=== PATIENT | female | born 1985 | race Caucasian/White ===

== ENCOUNTER 2020-05-20 13:56 | Emergency (ER) | payer SELFPAY ==
[~2020-05-20] VITALS: Ht 170 cm; Wt 62.0 kg
--- NOTE | 2020-05-20 14:08 | ED General ---
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 She was tested positive for coronavirus on 05/07/2020. She returned to work yesterday, today has been having some head rushes as well as general malaise and nausea. She denies feeling short of breath. She does have a history of asthma but is otherwise healthy. Timing/Duration: 1-2 Days Severity: Moderate, Severe Associated Systoms: Weakness Allergies and Home Medications Allergies Coded Allergies: Penicillins (Verified Allergy, Unknown, 05/20/20) Patient Home Medication List Home Medication List Reviewed: Yes Review of Systems Review of Systems Constitutional: see HPI, malaise, weakness EENTM: see HPI Respiratory: see HPI Cardiovascular: no symptoms reported Genitourinary: no symptoms reported Musculoskeletal: see HPI, back pain Skin: no symptoms reported Psychiatric/Neurological: No Symptoms Reported Hematologic/Lymphatic: No Symptoms Reported Immunological/Allergic: no symptoms reported Physical Exam Vital Signs Vital Signs - First Documented 05/20/20 14:00 Temp 36.5 Pulse 112 Resp 22 B/P (MAP) 134/80 (98) Pulse Ox 100 O2 Delivery Room Air Capillary Refill : Height, Weight, BMI Height: '" Weight: lbs. oz. kg; BMI Method: General Appearance: WD/WN, Other (Ill-appearing. Tachypneic with a respiratory rate in the 30s but oxygen saturation of 100% on room air. Heart rate was in the 130s on arrival, reduced to about 110 after settling down in bed. Lungs are clear with good air movement no wheezing.) Eyes: Bilateral Eye Normal Inspection, Bilateral Eye PERRL, Bilateral Eye EOMI Neck: Full Range of Motion, Normal Inspection Respiratory: Lungs Clear, Normal Breath Sounds, No Accessory Muscle Use, No Respiratory Distress Cardiovascular: Normal Peripheral Pulses, Tachycardia Gastrointestinal: Non Tender, Soft Extremity: Normal Capillary Refill, Normal Inspection Neurologic/Psychiatric: Alert, Oriented x3 Skin: Normal Color, Warm/Dry Progress/Results/Core Measures Suspected Sepsis SIRS Temperature: Pulse: Respiratory Rate: Laboratory Tests 05/20/20 14:01: White Blood Count 10.5 Blood Pressure / Mean: Laboratory Tests 05/20/20 14:01: Creatinine 0.84, Platelet Count 290, Total Bilirubin 0.3 Results/Orders Lab Results Laboratory Tests Test 05/20/20 14:01 Range/Units White Blood Count 10.5 4.3-11.0 10^3/uL Red Blood Count 4.86 3.80-5.11 10^6/uL Hemoglobin 14.4 11.5-16.0 g/dL Hematocrit 43 35-52 % Mean Corpuscular Volume 88 80-99 fL Mean Corpuscular Hemoglobin 30 25-34 pg Mean Corpuscular Hemoglobin Concent 34 32-36 g/dL Red Cell Distribution Width 11.8 10.0-14.5 % Platelet Count 290 130-400 10^3/uL Mean Platelet Volume 10.7 9.0-12.2 fL Immature Granulocyte % (Auto) 1 % Neutrophils (%) (Auto) 66 42-75 % Lymphocytes (%) (Auto) 26 12-44 % Monocytes (%) (Auto) 5 0-12 % Eosinophils (%) (Auto) 1 0-10 % Basophils (%) (Auto) 0 0-10 % Neutrophils # (Auto) 6.9 1.8-7.8 10^3/uL Lymphocytes # (Auto) 2.8 1.0-4.0 10^3/uL Monocytes # (Auto) 0.5 0.0-1.0 10^3/uL Eosinophils # (Auto) 0.1 0.0-0.3 10^3/uL Basophils # (Auto) 0.0 0.0-0.1 10^3/uL Immature Granulocyte # (Auto) 0.1 0.0-0.1 10^3/uL D-Dimer 0.88 H 0.00-0.49 UG/ML Sodium Level 141 135-145 MMOL/L Potassium Level 3.5 L 3.6-5.0 MMOL/L Chloride Level 106 98-107 MMOL/L Carbon Dioxide Level 21 21-32 MMOL/L Anion Gap 14 5-14 MMOL/L Blood Urea Nitrogen 13 7-18 MG/DL Creatinine 0.84 0.60-1.30 MG/DL Estimat Glomerular Filtration Rate > 60 BUN/Creatinine Ratio 15 Glucose Level 104 70-105 MG/DL Calcium Level 9.4 8.5-10.1 MG/DL Corrected Calcium 8.5-10.1 MG/DL Total Bilirubin 0.3 0.1-1.0 MG/DL Aspartate Amino Transf (AST/SGOT) 24 5-34 U/L Alanine Aminotransferase (ALT/SGPT) 26 0-55 U/L Alkaline Phosphatase 46 40-136 U/L Troponin I < 0.028 <0.028 NG/ML C-Reactive Protein High Sensitivity 0.05 0.00-0.50 MG/DL Total Protein 8.0 6.4-8.2 GM/DL Albumin 4.6 H 3.2-4.5 GM/DL Procalcitonin 0.01 <0.10 NG/ML My Orders Orders - JENAE FINN APRN Cbc With Automated Diff (05/20/20 14:05) Comprehensive Metabolic Panel (05/20/20 14:05) Hs C Reactive Protein (05/20/20 14:05) Procalcitonin (Pct) (05/20/20 14:05) Fibrin Degradation Products (05/20/20 14:05) Chest 1 View, Ap/Pa Only (05/20/20 14:05) Ed Iv/Invasive Line Start (05/20/20 14:05) Promethazine Injection (Phenergan Injec (05/20/20 14:15) Ketorolac Injection (Toradol Injection) (05/20/20 14:15) Troponin I (05/20/20 14:12) Ekg Tracing (05/20/20 14:12) Ct Angio Chest W (05/20/20 14:46) Iohexol Injection (Omnipaque 350 Mg/Ml 1 (05/20/20 15:00) Received Contrast (Hold Metformin- Contr (05/20/20 15:00) Ns (Ivpb) (Sodium Chloride 0.9% Ivpb Bag (05/20/20 15:00) Ns Iv 1000 Ml (Sodium Chloride 0.9%) (05/20/20 15:00) Medications Given in ED Current Medications Medications Dose Ordered Sig/Blayne Route Start Time Stop Time Status Last Admin Dose Admin Iohexol 75 ml ONCE ONCE IV 05/20/20 15:00 05/20/20 15:01 DC 05/20/20 15:05 60 ML Ketorolac Tromethamine 15 mg ONCE ONCE IVP 05/20/20 14:15 05/20/20 14:16 DC 05/20/20 14:14 15 MG Promethazine HCl 25 mg ONCE ONCE IVP 05/20/20 14:15 05/20/20 14:16 DC 05/20/20 14:15 25 MG Sodium Chloride 100 ml ONCE ONCE IV 05/20/20 15:00 05/20/20 15:01 DC 05/20/20 15:05 80 ML Vital Signs/I&O 05/20/20 14:00 Temp 36.5 Pulse 112 Resp 22 B/P (MAP) 134/80 (98) Pulse Ox 100 O2 Delivery Room Air Capillary Refill : Diagnostic Imaging Diagonstic Imaging: CT Comments NAME: YARA [facility] REC#: [id number] PT STATUS: REG ER : 1985 PHYSICIAN: JENAE FINN APRN ADMIT DATE: 05/20/20/ER Draft Date of Exam:05/20/20 CT ANGIO CHEST W PROCEDURE: CT angiography of the chest with contrast. TECHNIQUE: Multiple contiguous axial images were obtained through the chest after uneventful bolus administration of intravenous contrast. 3D reconstructed CTA MIP acquisitions were also performed. Auto Exposure Controls were utilized during the CT exam to meet ALARA standards for radiation dose reduction. INDICATION: Covid patient with difficulty breathing. FINDINGS: The pulmonary arterial branches are well opacified and widely patent. No filling defect or PE. There is no pleural or pericardial effusion. There is some very mild groundglass opacity in the right lower lobe medially as well as minimally involving the subpleural left lower lobe at the posterolateral sulcus. The lungs are otherwise clear. No air bronchograms. No blebs, bullous disease, or air cysts. There is some very minimal biapical pleural-parenchymal scarring. There is no pneumothorax. The visualized upper abdomen is unremarkable. IMPRESSION: 1. There are very mild zones of bibasilar peripheral groundglass infiltrates which are nonspecific but compatible with viral infectious etiology. 2. Negative for PE or acute aortic disease. No chest effusion or lobar consolidation. 3. The report was faxed to Infection Control by [email or web address]@3:33 PM. Dictated on workstation # [id number] Dict: 05/20/20 1517 Trans: 05/20/20 1534 [id number] Interpreted by: SAMANTHA STOCKTON Electronically signed by: Departure Impression Primary Impression: COVID-19 Additional Impressions: Sinus tachycardia Physical deconditioning Disposition: 01 HOME, SELF-CARE Condition: Improved Departure-Patient Inst. Decision time for Depature: 15:22 Referrals: NO,LOCAL PHYSICIAN (PCP/Family) Primary Care Physician Patient Instructions: Coronavirus Disease 2019 (COVID-19) Overview Add. Discharge Instructions: 1. Return to ER for any concerns 2. Follow-up with your doctor next week 3. JENAE FINN APRN May 20, 2020 14:08
[2020-05-20 14:11] LABS: BASOPHILS % (AUTO) 0 % (0-10); EOSINOPHILS # (AUTO) 0.1 10^3/uL (0.0-0.3); EOSINOPHILS % (AUTO) 1 % (0-10); HEMATOCRIT 43 % (35-52); HEMOGLOBIN 14.4 g/dL (11.5-16.0); LYMPHOCYTES # (AUTO) 2.8 10^3/uL (1.0-4.0); LYMPHOCYTES % (AUTO) 26 % (12-44); MEAN CORPUSCULAR HEMOGLOBIN 30 pg (25-34); MEAN CORPUSCULAR HGB CONC 34 g/dL (32-36); MEAN CORPUSCULAR VOLUME 88 fL (80-99); MEAN PLATELET VOLUME 10.7 fL (9.0-12.2); MONOCYTES # (AUTO) 0.5 10^3/uL (0.0-1.0); MONOCYTES % (AUTO) 5 % (0-12); NEUTROPHILS # (AUTO) 6.9 10^3/uL (1.8-7.8); NEUTROPHILS % (AUTO) 66 % (42-75); PLATELET COUNT 290 10^3/uL (130-400); WHITE BLOOD COUNT 10.5 10^3/uL (4.3-11.0)
[2020-05-20] MEDS ORDERED: KETOROLAC 30 MG/ML VIAL IVP ONE (14:15)
[2020-05-20] MEDS ORDERED: PROMETHAZINE INJ 25 MG/ML (PHENERGAN) AMP IVP ONE (14:15)
[2020-05-20 14:21] LABS: ALBUMIN 4.6 GM/DL (3.2-4.5); CHLORIDE 106 MMOL/L (98-107); POTASSIUM 3.5 MMOL/L (3.6-5.0); SODIUM 141 MMOL/L (135-145)
[2020-05-20 14:22] LABS: CALCIUM 9.4 MG/DL (8.5-10.1)
[2020-05-20 14:24] LABS: GLUCOSE 104 MG/DL (70-105)
[2020-05-20 14:25] LABS: BILIRUBIN,TOTAL 0.3 MG/DL (0.1-1.0); CARBON DIOXIDE 21 MMOL/L (21-32)
[2020-05-20 14:27] LABS: ALKALINE PHOSPHATASE 46 U/L (40-136); CREATININE SERUM 0.84 MG/DL (0.60-1.30); GFR ESTIMATED > 60
[2020-05-20 14:28] LABS: BUN/CREATININE RATIO 15
[2020-05-20 14:30] LABS: ALANINE AMINOTRANSFERASE 26 U/L (0-55)
--- NOTE | 2020-05-20 14:51 | Diagnostic Imaging Report ---
PATIENT HISTORY: Covid positive. Chest pain. TECHNIQUE: Single frontal view of the chest. COMPARISON: None. FINDINGS: The lung volumes are normal. No focal consolidation is seen. No large pleural effusion or pneumothorax is seen. The cardiomediastinal silhouette is normal in size and contour. No acute osseous abnormality is seen. IMPRESSION: No acute pulmonary abnormality is seen. The report was faxed to Infection Control by ambrosio@2:53 PM. Dictated by: Dictated on workstation # [id number]
[2020-05-20] MEDS ORDERED: NS 100 ML (IVPB) BAG IV ONE (15:00)
[2020-05-20] MEDS ORDERED: HOLD METFORMIN - RECEIVED CONTRAST 20 ML VIAL IV SCH (15:00)
[2020-05-20] MEDS ORDERED: IOHEXOL 350 MG/ML 100 ML (OMNIPAQUE 350) VIAL IV ONE (15:00)
[2020-05-20] MEDS ORDERED: NS IV 1000 ML 1,000 ML IV SCH (15:00)
--- NOTE | 2020-05-20 15:34 | Diagnostic Imaging Report ---
PROCEDURE: CT angiography of the chest with contrast. TECHNIQUE: Multiple contiguous axial images were obtained through the chest after uneventful bolus administration of intravenous contrast. 3D reconstructed CTA MIP acquisitions were also performed. Auto Exposure Controls were utilized during the CT exam to meet ALARA standards for radiation dose reduction. INDICATION: Covid patient with difficulty breathing. FINDINGS: The pulmonary arterial branches are well opacified and widely patent. No filling defect or PE. There is no pleural or pericardial effusion. There is some very mild groundglass opacity in the right lower lobe medially as well as minimally involving the subpleural left lower lobe at the posterolateral sulcus. The lungs are otherwise clear. No air bronchograms. No blebs, bullous disease, or air cysts. There is some very minimal biapical pleural-parenchymal scarring. There is no pneumothorax. The visualized upper abdomen is unremarkable. IMPRESSION: 1. There are very mild zones of bibasilar peripheral groundglass infiltrates which are nonspecific but compatible with viral infectious etiology. 2. Negative for PE or acute aortic disease. No chest effusion or lobar consolidation. 3. The report was faxed to Infection Control by ambrosio@3:33 PM. Dictated by: Dictated on workstation # [id number]
[2020-05-20 16:10] VITALS: BP 134/80
== END 2020-05-20 16:12 | disposition home or self-care (01) ==
LOC: ER 13:59
DX: U07.1 COVID-19 (principal); R00.0 Tachycardia, unspecified; R53.81 Other malaise; Z88.0 Allergy status to penicillin
CPT/HCPCS: 36415; 71045; 71275; 80053; 84145; 84484; 85025; 85379; 86141; 93005

== ENCOUNTER → 2021-02-11 | Outpatient (CLI) | payer OTHER ==
[~2021-02-11] MED LIST: CATHETER FLUSH 10 ML SYR IV PRN; HOLD METFORMIN - RECEIVED CONTRAST 20 ML VIAL IV SCH; IOHEXOL 350 MG/ML 100 ML (OMNIPAQUE 350) VIAL IV ONE; NS 100 ML (IVPB) BAG IV ONE
--- NOTE | 2021-02-11 16:18 | Diagnostic Imaging Report ---
PROCEDURE: CT abdomen and pelvis with contrast. TECHNIQUE: Multiple contiguous axial images were obtained through the abdomen and pelvis after administration of intravenous contrast. Auto Exposure Controls were utilized during the CT exam to meet ALARA standards for radiation dose reduction. All CT scans use one or more of the following dose optimizing techniques: automated exposure control, MA and/or KvP adjustment based on patient size and exam type or iterative reconstruction. INDICATION: Right lower quadrant abdominal pain. No prior studies are available for comparison. The lung bases are clear. No discrete liver mass is detected. The gallbladder is surgically absent. No biliary ductal dilatation is seen. The pancreas and spleen are unremarkable. No adrenal mass is detected. Kidneys are unremarkable. There is no hydronephrosis. Aorta is nonaneurysmal. The small and large bowel loops are normal caliber. No obstruction is identified. The appendix is visualized in the right lower quadrant and appears unremarkable. There appears to be trace free fluid in the pelvis. No free fluid in abdomen is identified. Uterus is surgically absent. Bladder is unremarkable. The bony structures are nonacute. IMPRESSION: 1. Status post cholecystectomy. 2. Normal appearance to the appendix. There is no CT evidence of acute appendicitis. 3. No evidence of urinary tract calculi or obstruction. 4. No acute features identified. Dictated by: Dictated on workstation # [id number]
== END ==
LOC: RAD 15:30
PROVIDERS: ATTEND Physician Assistant
DX: R10.31 Right lower quadrant pain (principal); Z90.49 Acquired absence of other specified parts of digestive tract
CPT/HCPCS: 74177

== ENCOUNTER → 2023-04-21 | Outpatient (CLI) | payer OTHER ==
[~2023-04-21] MED LIST changes: -CATHETER FLUSH 10 ML SYR IV PRN; +GADOTERATE 0.5 MMOL/ML (CLARISCAN) 15 ML VIAL IV ONE; -HOLD METFORMIN - RECEIVED CONTRAST 20 ML VIAL IV SCH; -IOHEXOL 350 MG/ML 100 ML (OMNIPAQUE 350) VIAL IV ONE; -NS 100 ML (IVPB) BAG IV ONE
--- NOTE | 2023-04-21 13:47 | Diagnostic Imaging Report ---
PROCEDURE: MR imaging of the brain with and without contrast. TECHNIQUE: Multiplanar, multisequence MR imaging of the brain was performed with and without contrast. Additional dedicated sequences are performed of the orbits. INDICATION: Bad headache. Vision loss. COMPARISON: None. FINDINGS: No acute ischemia, mass, or hemorrhage. No abnormal enhancement is seen. The ventricles, cortical sulci, and basilar cisterns are symmetric and unremarkable. The sellar and suprasellar regions have a normal appearance. The major intracranial flow voids are intact. The brainstem and posterior fossa are unremarkable. The paranasal sinuses and mastoid air cells demonstrate normal signal characteristics. The globes and orbits are symmetric and unremarkable. No evidence of postseptal inflammation. The extraocular muscles are symmetric and unremarkable. No abnormal enhancement is seen along the course of the optic nerves. No abnormal fluid is seen within the optic nerve sheaths. The cavernous sinuses have a normal appearance. The scalp and calvarium have a normal appearance. IMPRESSION: 1. No acute ischemia, mass, or hemorrhage. No abnormal enhancement. 2. Unremarkable appearance of the globes and orbits. No postseptal inflammation or abnormal enhancement. Dictated by: Dictated on workstation # [id number]
== END ==
LOC: RAD 11:57
PROVIDERS: ATTEND Family Medicine
DX: H53.461 Homonymous bilateral field defects, right side (principal); H53.462 Homonymous bilateral field defects, left side
CPT/HCPCS: 70553